=== PATIENT | male | born 1945 | race Caucasian/White ===

== ENCOUNTER 2017-01-01 04:11 | Inpatient (IN) | payer MEDICARE, OTHER ==
[~2017-01-01] VITALS: Ht 160 cm; Wt 63.3 kg
[2017-01-01] MEDS ORDERED: INSU100V12 SQ (04:20)
[2017-01-01] MEDS ORDERED: AMLO-512 PO (04:20)
[2017-01-01] MEDS ORDERED: LOSA50TA37 PO (04:20)
[2017-01-01] MEDS ORDERED: LEVO50 PO (04:20)
[2017-01-01] MEDS ORDERED: CARV12 PO (04:20)
[2017-01-01] MEDS ORDERED: FUROSEMIDE 40 MG/4 ML VIAL IVP ONE (04:30)
[2017-01-01 04:38] LABS: GLUCOSE,POINT OF CARE 180 MG/DL (70-110)
[2017-01-01 05:06] LABS: BASOPHILS % (AUTO) 0.3 % (0.0-2.0); HEMATOCRIT 33.1 % (41-53); HEMOGLOBIN 11.2 g/dL (13.5-17.5); LYMPHOCYTES # (AUTO) 1.2 K/uL (1.0-4.8); LYMPHOCYTES % (AUTO) 15.5 % (22.0-44.0); MEAN CORPUSCULAR HEMOGLOBIN 28.5 pg (26.0-34.0); MEAN CORPUSCULAR HGB CONC 33.9 G/dL (31.0-37.0); MEAN CORPUSCULAR VOLUME 84 fL (80-100); MONOCYTES # (AUTO) 0.6 K/uL (0.1-1.0); MONOCYTES % (AUTO) 6.9 % (2.0-9.0); NEUTROPHILS % (AUTO) 74.3 % (40.0-70.0); PLATELET COUNT (AUTO) 225 K/uL (150-450); RED BLOOD CELL COUNT(AUTO) 3.93 MIL/uL (4.50-5.90)
[2017-01-01 05:21] LABS: BILIRUBIN,TOTAL 0.5 mg/dL (0.1-1.0); CALCIUM, TOTAL 8.6 mg/dL (8.8-10.5); CREATININE 9.92 mg/dL (0.60-1.30); TOTAL PROTEIN, SERUM 7.7 g/dL (6.4-8.2)
[2017-01-01 05:36] LABS: POTASSIUM 6.1 mmol/L (3.5-5.1)
[2017-01-01] MEDS ORDERED: ALBUTEROL SULFATE 2.5 MG/0.5 ML NEB SOLUTION NEB ONE (05:45)
[2017-01-01] MEDS ORDERED: SODIUM BICARBONATE [ADULT] 8.4% 50 MEQ/50 ML SYRINGE IVP ONE (05:45)
[2017-01-01] MEDS ORDERED: DEXTROSE 50%-WATER 25 GM/50 ML SYRINGE IVP ONE (05:45)
[2017-01-01] MEDS ORDERED: CALCIUM GLUCONATE 100 MG/ML 10 ML IVP ONE (05:45)
[2017-01-01] MEDS ORDERED: SODIUM POLYSTYRENE SULFONATE 15 GM/60 ML SUSPENSION BOTTLE PO ONE (05:45)
[2017-01-01] MEDS ORDERED: INSULIN REGULAR, HUMAN 100 UNITS/ML IVP ONE (05:45)
[2017-01-01 09:28] VITALS: BP 160/69
[2017-01-01] MEDS ORDERED: SODIUM CHLORIDE 0.9% 1,000 ML IV ONE (10:22)
[2017-01-01 11:10] VITALS: BP 157/77
[2017-01-01] MEDS: VITAMIN B COMP/VIT C/FOLIC ACID CAPSULE PO SCH (12:26)
[2017-01-01] MEDS ORDERED: INFLUENZA VIRUS VACCINE QVS 2017-18 (3YR+)/PF 60 MCG/0.5 ML SYRINGE IM ONE (13:15)
[2017-01-01 15:17] VITALS: BP 157/85
[2017-01-01 19:57] VITALS: BP 169/89
[2017-01-01 23:40] VITALS: BP 167/76
[2017-01-02 04:49] VITALS: BP 166/78
[2017-01-02 06:57] LABS: CALCIUM, TOTAL 8.3 mg/dL (8.8-10.5); CREATININE 7.35 mg/dL (0.60-1.30); MAGNESIUM 1.9 mg/dL (1.80-2.40); PHOSPHORUS 4.5 mg/dL (2.5-4.9); POTASSIUM 4.1 mmol/L (3.5-5.1)
[2017-01-02 07:45] VITALS: BP 159/72
[2017-01-02] MEDS: VITAMIN B COMP/VIT C/FOLIC ACID CAPSULE PO SCH (08:47)
[2017-01-02 11:20] VITALS: BP 121/80
[2017-01-02 15:01] VITALS: BP 176/92
[2017-01-02] MEDS ORDERED: BISACODYL 10 MG RECTAL RECTAL SUPPOSITORY PR PRN (16:45)
[2017-01-02] MEDS ORDERED: ZOLPIDEM TARTRATE 5 MG TABLET PO PRN (16:45)
[2017-01-02] MEDS ORDERED: MAGNESIUM HYDROXIDE SUSPENSION 30 ML UDCUP PO PRN (16:45)
[2017-01-02] MEDS ORDERED: MORPHINE SULFATE 2 MG/ML SYRINGE IVP PRN (16:45)
[2017-01-02] MEDS ORDERED: HYDROCODONE/ACETAMINOPHEN 5-325 MG TABLET PO PRN (16:45)
[2017-01-02] MEDS ORDERED: ALBUTEROL SULFATE 2.5 MG/0.5 ML NEB SOLUTION NEB PRN (16:45)
[2017-01-02] MEDS ORDERED: LOSARTAN POTASSIUM 50 MG TABLET PO SCH (16:45)
[2017-01-02] MEDS ORDERED: AmLODIPine BESYLATE 10 MG TABLET PO SCH (16:45)
[2017-01-02] MEDS ORDERED: IPRATROPIUM BROMIDE 0.5 MG/2.5 ML NEB SOLUTION NEB PRN (16:45)
[2017-01-02] MEDS ORDERED: ONDANSETRON HCL 4 MG/2 ML VIAL IVP PRN (16:45)
[2017-01-02] MEDS ORDERED: ACETAMINOPHEN 325 MG TABLET PO PRN (16:45)
[2017-01-02] MEDS ORDERED: ACETAMINOPHEN 325 MG TABLET PO ONE (18:09)
[2017-01-02] MEDS ORDERED: DOCUSATE SODIUM 100 MG CAPSULE PO SCH (21:00)
[2017-01-02] MEDS ORDERED: CARVEDILOL 12.5 MG TABLET PO SCH (21:00)
[2017-01-03] MEDS ORDERED: HEPARIN SODIUM,PORCINE 5,000 UNITS/ML VIAL SQ SCH
[2017-01-03] MEDS ORDERED: LEVOTHYROXINE SODIUM 50 MCG TABLET PO SCH (06:30)
[2017-01-03] MEDS ORDERED: PANTOPRAZOLE SODIUM 40 MG/VIAL IVP SCH (09:00)
[2017-01-03] MEDS ORDERED: INSULIN DETEMIR 100 UNITS/ML SQ SCH (09:00)
== END 2017-01-02 18:10 | disposition home or self-care (01) | DRG 640 ==
LOC: EMS 04:12 → 5N 07:08
PROVIDERS: ADMIT Hospitalist; ATTEND Hospitalist
PROC: 5A1D70Z Performance of Urinary Filtration, Intermittent, Less than 6 Hours Per Day (ICD-10-PCS; principal; 2017-01-01)
PROC: 5A1D70Z Performance of Urinary Filtration, Intermittent, Less than 6 Hours Per Day (ICD-10-PCS; 2017-01-02)
DX: E87.5 Hyperkalemia (principal); N18.6 End stage renal disease; I13.2 Hypertensive heart and chronic kidney disease with heart failure and with stage 5 chronic kidney disease, or end stage renal disease; E11.22 Type 2 diabetes mellitus with diabetic chronic kidney disease; E03.9 Hypothyroidism, unspecified; E78.5 Hyperlipidemia, unspecified; I50.9 Heart failure, unspecified; Z79.4 Long term (current) use of insulin; Z79.899 Other long term (current) drug therapy; Z99.2 Dependence on renal dialysis; Z91.15 Patient's noncompliance with renal dialysis
CPT/HCPCS: 82962; 83735; 84100; 84132; 87081; 87340; 90471; 90935; 93005; 94640; 96374; 96375; 99291; J0610; J1815; J1940; J3490; J7030

== ENCOUNTER 2017-03-03 10:24 | Emergency (ER) | payer MEDICARE, OTHER ==
[~2017-03-03] VITALS: Ht 157.5 cm; Wt 61.4 kg
[~2017-03-03 10:24] MED LIST: AMLO-512 PO; CARV12 PO; INSU100V12 SQ; LEVO50 PO; LOSA50TA37 PO
[2017-03-03 10:37] LABS: GLUCOSE,POINT OF CARE 197 MG/DL (70-110)
[2017-03-03 13:01] VITALS: BP 155/71
== END 2017-03-03 13:05 | disposition home or self-care (01) ==
LOC: EMS 10:26
DX: R42 Dizziness and giddiness (principal); R51 Headache; I12.0 Hypertensive chronic kidney disease with stage 5 chronic kidney disease or end stage renal disease; E11.22 Type 2 diabetes mellitus with diabetic chronic kidney disease; N18.6 End stage renal disease; E03.9 Hypothyroidism, unspecified; Z99.2 Dependence on renal dialysis; Z79.4 Long term (current) use of insulin
CPT/HCPCS: 82962; 93005; 96372; 99283

== ENCOUNTER 2017-07-13 08:21 | Emergency (ER) | payer MEDICARE, OTHER ==
[~2017-07-13] VITALS: Ht 160 cm; Wt 54.5 kg
[2017-07-13 08:33] LABS: GLUCOSE,POINT OF CARE 110 MG/DL (70-110)
[2017-07-13] MEDS ORDERED: AmLODIPine BESYLATE 5 MG TABLET PO ONE (09:00)
[2017-07-13] MEDS ORDERED: LEVOTHYROXINE SODIUM 50 MCG TABLET PO ONE (09:00)
[2017-07-13] MEDS ORDERED: LOSARTAN POTASSIUM 50 MG TABLET PO ONE (09:00)
[2017-07-13] MEDS ORDERED: CARVEDILOL 3.125 MG TABLET PO ONE (09:00)
[2017-07-13 09:23] LABS: BASOPHILS % (AUTO) 0.4 % (0.0-2.0); EOSINOPHILS % (AUTO) 7.1 % (1.0-6.0); HEMATOCRIT 33.9 % (41-53); HEMOGLOBIN 11.2 g/dL (13.5-17.5); LYMPHOCYTES # (AUTO) 1.3 K/uL (1.0-4.8); LYMPHOCYTES % (AUTO) 26.9 % (22.0-44.0); MEAN CORPUSCULAR HEMOGLOBIN 28.1 pg (26.0-34.0); MEAN CORPUSCULAR VOLUME 85 fL (80-100); MONOCYTES # (AUTO) 0.5 K/uL (0.1-1.0); MONOCYTES % (AUTO) 10.1 % (2.0-9.0); NEUTROPHILS # (AUTO) 2.7 K/uL (1.8-7.7); NEUTROPHILS % (AUTO) 55.5 % (40.0-70.0); PLATELET COUNT (AUTO) 211 K/uL (150-450); RED BLOOD CELL COUNT(AUTO) 3.99 MIL/uL (4.50-5.90); RED CELL DISTRIBUTION WIDTH 17.2 % (11.5-14.5)
[2017-07-13 09:31] LABS: CREATININE 5.81 mg/dL (0.60-1.30); POTASSIUM 5.2 mmol/L (3.5-5.1)
[2017-07-13 09:32] LABS: CALCIUM, TOTAL 8.6 mg/dL (8.8-10.5)
[2017-07-13 09:39] LABS: ALBUMIN 3.8 g/dL (3.4-5.0); BILIRUBIN,TOTAL 0.6 mg/dL (0.1-1.0); TOTAL PROTEIN, SERUM 7.4 g/dL (6.4-8.2)
[2017-07-13 09:52] LABS: APPEARANCE,URINE CLEAR (CLEAR); BILIRUBIN,URINE NEGATIVE (NEGATIVE); GLUCOSE, URINE (UA) 100 mg/dL (NEGATIVE); KETONES,URINE NEGATIVE (NEGATIVE); LEUKOCYTE ESTERASE ,URINE SMALL (NEGATIVE); NITRATE,URINE NEGATIVE (NEGATIVE); OCCULT BLOOD,URINE TRACE (NEGATIVE); PROTEIN,URINE SEE CONFIRM (NEGATIVE); UROBILINOGEN,URINE 0.2 mg/dL (<=1.0)
[2017-07-13 10:24] LABS: BACTERIA,URINE None Seen /HPF (None Seen); RBC,URINE 0-2 /HPF (0-2)
[2017-07-13 10:25] LABS: SULFOSALICYLIC ACID,URINE 3+ (Negative)
[2017-07-13] MEDS ORDERED: SODIUM POLYSTYRENE SULFONATE 15 GM/60 ML SUSPENSION BOTTLE PO ONE (11:00)
[2017-07-13] MEDS ORDERED: LOPERAMIDE HCL 2 MG CAPSULE PO ONE (12:15)
[2017-07-13 14:28] VITALS: BP 159/77
[2017-07-13 16:51] LABS: C.DIFF GDH ANTIGEN, Stool Negative (Negative); C.DIFF TOXINS A&B, Stool Negative (Negative)
== END 2017-07-13 14:07 | disposition home or self-care (01) ==
LOC: EMS 08:23
DX: R19.7 Diarrhea, unspecified (principal); E11.22 Type 2 diabetes mellitus with diabetic chronic kidney disease; I12.0 Hypertensive chronic kidney disease with stage 5 chronic kidney disease or end stage renal disease; N18.6 End stage renal disease; E03.9 Hypothyroidism, unspecified; Z99.2 Dependence on renal dialysis; Z79.4 Long term (current) use of insulin
CPT/HCPCS: 87045; 87324; 87449; 99284

== ENCOUNTER 2017-12-07 10:40 | Emergency (ER) | payer MEDICARE, OTHER ==
[~2017-12-07] VITALS: Ht 160 cm; Wt 59.5 kg
[~2017-12-07 10:40] MED LIST changes: +LOSA50TA25 PO; -LOSA50TA37 PO
[2017-12-07 10:54] LABS: GLUCOSE,POINT OF CARE 183 MG/DL (70-110)
[2017-12-07 11:38] LABS: BASOPHILS % (AUTO) 1.1 % (0.0-2.0); EOSINOPHILS % (AUTO) 7.5 % (1.0-6.0); HEMATOCRIT 33.2 % (41-53); HEMOGLOBIN 11.1 g/dL (13.5-17.5); LYMPHOCYTES # (AUTO) 1.2 K/uL (1.0-4.8); LYMPHOCYTES % (AUTO) 26.5 % (22.0-44.0); MEAN CORPUSCULAR HEMOGLOBIN 28.8 pg (26.0-34.0); MEAN CORPUSCULAR HGB CONC 33.5 G/dL (31.0-37.0); MEAN CORPUSCULAR VOLUME 86 fL (80-100); MONOCYTES # (AUTO) 0.4 K/uL (0.1-1.0); MONOCYTES % (AUTO) 9.1 % (2.0-9.0); NEUTROPHILS # (AUTO) 2.5 K/uL (1.8-7.7); NEUTROPHILS % (AUTO) 55.8 % (40.0-70.0); PLATELET COUNT (AUTO) 204 K/uL (150-450); RED BLOOD CELL COUNT(AUTO) 3.86 MIL/uL (4.50-5.90); RED CELL DISTRIBUTION WIDTH 16.7 % (11.5-14.5)
[2017-12-07] MEDS ORDERED: NIFE10 PO (11:40)
[2017-12-07 11:46] LABS: CALCIUM, TOTAL 8.5 mg/dL (8.8-10.5); CREATININE 5.81 mg/dL (0.60-1.30)
[2017-12-07 12:01] LABS: ALBUMIN 3.5 g/dL (3.4-5.0); BILIRUBIN,TOTAL 0.5 mg/dL (0.1-1.0); THYROID STIMULATING HORMONE 7.03 uIU/mL (0.36-3.74); TOTAL PROTEIN, SERUM 7.4 g/dL (6.4-8.2)
[2017-12-07] MEDS ORDERED: LEVOTHYROXINE SODIUM 75 MCG TABLET PO ONE (14:45)
[2017-12-07 14:49] LABS: APPEARANCE,URINE CLEAR (CLEAR); BILIRUBIN,URINE NEGATIVE (NEGATIVE); GLUCOSE, URINE (UA) 100 mg/dL (NEGATIVE); KETONES,URINE NEGATIVE (NEGATIVE); LEUKOCYTE ESTERASE ,URINE NEGATIVE (NEGATIVE); NITRATE,URINE NEGATIVE (NEGATIVE); OCCULT BLOOD,URINE TRACE (NEGATIVE); PROTEIN,URINE SEE CONFIRM (NEGATIVE); UROBILINOGEN,URINE 0.2 mg/dL (<=1.0)
[2017-12-07 15:04] LABS: SULFOSALICYLIC ACID,URINE 4+ (Negative)
[2017-12-07 15:13] LABS: BACTERIA,URINE None Seen /HPF (None Seen); RBC,URINE 0-2 /HPF (0-2); SQUAMOUS EPITHELIAL CELL,UR Rare /LPF (None Seen); WBC,URINE 0-2 /HPF (0-5)
[2017-12-07] MEDS ORDERED: CloNIDine HCL 0.1 MG TABLET PO ONE (15:30)
[2017-12-07] MEDS ORDERED: SODIUM CHLORIDE 0.9% 250 ML IV ONE (15:45)
[2017-12-07 18:08] VITALS: BP 154/89
== END 2017-12-07 18:09 | disposition home or self-care (01) ==
LOC: EMS 10:41
DX: I10 Essential (primary) hypertension (principal); E07.9 Disorder of thyroid, unspecified; T46.1X5A Adverse effect of calcium-channel blockers, initial encounter; I12.0 Hypertensive chronic kidney disease with stage 5 chronic kidney disease or end stage renal disease; E11.22 Type 2 diabetes mellitus with diabetic chronic kidney disease; N18.6 End stage renal disease; Z99.2 Dependence on renal dialysis; Z79.4 Long term (current) use of insulin; Y92.89 Other specified places as the place of occurrence of the external cause
CPT/HCPCS: 36415; 70450; 80053; 81001; 82962; 84443; 84484; 85025; 93005; 96360; 99285; J7050

== ENCOUNTER 2018-03-27 11:59 | Inpatient (IN) | payer MEDICARE, OTHER ==
[~2018-03-27] VITALS: Ht 160 cm; Wt 59.7 kg
[~2018-03-27 11:59] MED LIST changes: -AMLO-512 PO; -CARV12 PO; -LOSA50TA25 PO; +LOSA50TA64 PO; +NIFE10 PO
[2018-03-27] MEDS ORDERED: ISOS5TAB5 PO (12:31)
[2018-03-27] MEDS ORDERED: OMEP20CA10 PO (12:31)
[2018-03-27] MEDS ORDERED: CARV12.530 PO (12:31)
[2018-03-27] MEDS ORDERED: SPIR25TA6 PO (12:31)
[2018-03-27 12:43] LABS: GLUCOSE,POINT OF CARE 199 MG/DL (70-110)
[2018-03-27 13:16] LABS: BASOPHILS % (AUTO) 0.5 % (0.0-2.0); EOSINOPHILS % (AUTO) 6.2 % (1.0-6.0); HEMATOCRIT 33.9 % (41-53); HEMOGLOBIN 11.2 g/dL (13.5-17.5); LYMPHOCYTES % (AUTO) 21.3 % (22.0-44.0); MEAN CORPUSCULAR HEMOGLOBIN 28.7 pg (26.0-34.0); MEAN CORPUSCULAR VOLUME 87 fL (80-100); MONOCYTES # (AUTO) 0.4 K/uL (0.1-1.0); MONOCYTES % (AUTO) 7.6 % (2.0-9.0); NEUTROPHILS # (AUTO) 3.2 K/uL (1.8-7.7); NEUTROPHILS % (AUTO) 64.4 % (40.0-70.0); PLATELET COUNT (AUTO) 222 K/uL (150-450); RED CELL DISTRIBUTION WIDTH 16.1 % (11.5-14.5)
[2018-03-27 13:24] LABS: CALCIUM, TOTAL 8.9 mg/dL (8.8-10.5); CREATININE 5.7 mg/dL (0.60-1.30)
[2018-03-27 13:26] LABS: INR 1.1 (0.9-1.1); PROTHROMBIN TIME 11.2 SEC (9.4-11.6)
[2018-03-27 13:30] LABS: ALBUMIN 3.4 g/dL (3.4-5.0); BILIRUBIN,TOTAL 0.5 mg/dL (0.1-1.0); TOTAL PROTEIN, SERUM 7.1 g/dL (6.4-8.2)
[2018-03-27] MEDS ORDERED: ASPIRIN 81 MG CHEWABLE TABLET PO ONE (15:30)
[2018-03-27 15:41] LABS: APPEARANCE,URINE CLEAR (CLEAR); BILIRUBIN,URINE NEGATIVE (NEGATIVE); GLUCOSE, URINE (UA) 250 mg/dL (NEGATIVE); KETONES,URINE NEGATIVE (NEGATIVE); LEUKOCYTE ESTERASE ,URINE TRACE (NEGATIVE); NITRATE,URINE NEGATIVE (NEGATIVE); OCCULT BLOOD,URINE SMALL (NEGATIVE); PROTEIN,URINE SEE CONFIRM (NEGATIVE); UROBILINOGEN,URINE 0.2 mg/dL (<=1.0)
[2018-03-27 15:48] LABS: SULFOSALICYLIC ACID,URINE 4+ (Negative)
[2018-03-27 15:49] LABS: BACTERIA,URINE Rare /HPF (None Seen); RBC,URINE 0-2 /HPF (0-2); SQUAMOUS EPITHELIAL CELL,UR Few /LPF (None Seen)
[2018-03-27] MEDS ORDERED: 0.9% SODIUM CHLORIDE 10 ML SYRINGE IVP PRN (17:30)
[2018-03-27] MEDS ORDERED: INSULIN LISPRO 100 UNITS/ML SQ PRN (17:30)
[2018-03-27] MEDS ORDERED: ACETAMINOPHEN 325 MG TABLET PO PRN (17:30)
[2018-03-27] MEDS ORDERED: DEXTROSE 50%-WATER 25 GM/50 ML SYRINGE IVP PRN ×2 (17:30→20:15)
[2018-03-27] MEDS ORDERED: ONDANSETRON HCL 4 MG/2 ML VIAL IVP PRN (17:30)
[2018-03-27 18:21] VITALS: BP 117/80
[2018-03-27 19:34] VITALS: BP 188/89
[2018-03-27] MEDS ORDERED: ALBUTEROL SULFATE 2.5 MG/0.5 ML NEB SOLUTION NEB PRN ×2 (20:15→23:45)
[2018-03-27] MEDS ORDERED: BISACODYL 10 MG RECTAL RECTAL SUPPOSITORY PR PRN (20:15)
[2018-03-27] MEDS: DOCUSATE SODIUM 100 MG CAPSULE PO SCH (21:06)
[2018-03-27] MEDS: LOSARTAN POTASSIUM 25 MG TABLET PO SCH (21:06)
[2018-03-27] MEDS: AmLODIPine BESYLATE 10 MG TABLET PO SCH (21:06)
[2018-03-27] MEDS: HEPARIN SODIUM,PORCINE 5,000 UNITS/ML VIAL SQ SCH (21:06)
[2018-03-27 22:29] LABS: GLUCOMETER DEV NAME(LOC) 5S.2; GLUCOSE,POINT OF CARE 216 MG/DL (70-110)
[2018-03-27 23:10] VITALS: BP 202/81
[2018-03-27] MEDS: CloNIDine HCL 0.1 MG TABLET PO PRN (23:11)
[2018-03-27] MEDS: CARVEDILOL 12.5 MG TABLET PO SCH (23:30)
[2018-03-27] MEDS ORDERED: DOXERCALCIFEROL 4 MCG/2 ML VIAL IVP SCH (23:45)
[2018-03-27] MEDS ORDERED: HydrALAZINE HCL 20 MG/ML VIAL IVP PRN (23:45)
[2018-03-28] VITALS (9 sets, daily range): BP systolic 133–237; BP diastolic 60–117
[2018-03-28] MEDS: ACETAMINOPHEN 325 MG TABLET PO PRN (02:38)
[2018-03-28] MEDS: OxyCODONE HCL/ACETAMINOPHEN 5-325 MG TABLET PO PRN ×4 (05:47→23:44)
[2018-03-28] MEDS: HydrALAZINE HCL 20 MG/ML VIAL IVP PRN ×3 (06:08→23:44)
[2018-03-28] MEDS: CloNIDine HCL 0.1 MG TABLET PO PRN ×2 (06:46→15:48)
[2018-03-28 07:55] LABS: ALBUMIN 3.1 g/dL (3.4-5.0); BILIRUBIN,TOTAL 0.6 mg/dL (0.1-1.0); CALCIUM, TOTAL 8.6 mg/dL (8.8-10.5); CREATININE 4.94 mg/dL (0.60-1.30); POTASSIUM 4.1 mmol/L (3.5-5.1); THYROID STIMULATING HORMONE 11.44 uIU/mL (0.36-3.74); TOTAL PROTEIN, SERUM 6.5 g/dL (6.4-8.2)
[2018-03-28 08:08] LABS: BASOPHILS % (AUTO) 0.4 % (0.0-2.0); EOSINOPHILS % (AUTO) 4.5 % (1.0-6.0); HEMATOCRIT 31.7 % (41-53); HEMOGLOBIN 10.6 g/dL (13.5-17.5); LYMPHOCYTES # (AUTO) 0.9 K/uL (1.0-4.8); LYMPHOCYTES % (AUTO) 15.1 % (22.0-44.0); MEAN CORPUSCULAR HEMOGLOBIN 28.8 pg (26.0-34.0); MEAN CORPUSCULAR HGB CONC 33.4 G/dL (31.0-37.0); MEAN CORPUSCULAR VOLUME 86 fL (80-100); MONOCYTES # (AUTO) 0.3 K/uL (0.1-1.0); MONOCYTES % (AUTO) 4.9 % (2.0-9.0); NEUTROPHILS # (AUTO) 4.3 K/uL (1.8-7.7); NEUTROPHILS % (AUTO) 75.1 % (40.0-70.0); PLATELET COUNT (AUTO) 216 K/uL (150-450); RED BLOOD CELL COUNT(AUTO) 3.67 MIL/uL (4.50-5.90); RED CELL DISTRIBUTION WIDTH 16.2 % (11.5-14.5)
[2018-03-28] MEDS: HEPARIN SODIUM,PORCINE 5,000 UNITS/ML VIAL SQ SCH ×2 (09:48→20:57)
[2018-03-28] MEDS: VITAMIN B COMP/VIT C/FOLIC ACID CAPSULE PO SCH (09:49)
[2018-03-28] MEDS: FAMOTIDINE 20 MG TABLET PO SCH (09:49)
[2018-03-28] MEDS: DOCUSATE SODIUM 100 MG CAPSULE PO SCH ×2 (09:49→20:57)
[2018-03-28] MEDS: ATORVASTATIN CALCIUM 20 MG TABLET PO SCH (09:49)
[2018-03-28] MEDS: ASPIRIN 81 MG CHEWABLE TABLET PO SCH (09:50)
[2018-03-28 10:59] LABS: GLUCOMETER DEV NAME(LOC) 5S.1; GLUCOSE,POINT OF CARE 110 MG/DL (70-110)
[2018-03-28] MEDS: LOSARTAN POTASSIUM 25 MG TABLET PO SCH ×2 (11:19→20:57)
[2018-03-28] MEDS: CARVEDILOL 12.5 MG TABLET PO SCH ×2 (11:19→20:56)
[2018-03-28] MEDS: INSULIN LISPRO 100 UNITS/ML SQ PRN ×3 (11:21→20:58)
[2018-03-28 13:14] LABS: GLUCOMETER DEV NAME(LOC) 5S.1; GLUCOSE,POINT OF CARE 185 MG/DL (70-110)
[2018-03-28] MEDS: AmLODIPine BESYLATE 10 MG TABLET PO SCH (20:57)
[2018-03-29] VITALS (9 sets, daily range): BP systolic 12–182; BP diastolic 54–82
[2018-03-29] MEDS: INSULIN LISPRO 100 UNITS/ML SQ PRN ×4 (06:03→21:18)
[2018-03-29] MEDS: HEPARIN SODIUM,PORCINE 5,000 UNITS/ML VIAL SQ SCH ×2 (08:10→21:16)
[2018-03-29] MEDS: FAMOTIDINE 20 MG TABLET PO SCH (08:10)
[2018-03-29] MEDS: ONDANSETRON HCL 4 MG/2 ML VIAL IVP PRN ×2 (08:10→14:04)
[2018-03-29] MEDS: CARVEDILOL 12.5 MG TABLET PO SCH (08:11)
[2018-03-29] MEDS: DOCUSATE SODIUM 100 MG CAPSULE PO SCH ×2 (08:11→21:17)
[2018-03-29] MEDS: ATORVASTATIN CALCIUM 20 MG TABLET PO SCH (08:11)
[2018-03-29] MEDS: LOSARTAN POTASSIUM 25 MG TABLET PO SCH (08:11)
[2018-03-29] MEDS: VITAMIN B COMP/VIT C/FOLIC ACID CAPSULE PO SCH (08:11)
[2018-03-29] MEDS: ASPIRIN 81 MG CHEWABLE TABLET PO SCH (08:11)
[2018-03-29] MEDS: CloNIDine HCL 0.1 MG TABLET PO PRN (08:12)
[2018-03-29] MEDS ORDERED: MECLIZINE HCL 25 MG TABLET PO PRN (10:00)
[2018-03-29] MEDS: HydrALAZINE HCL 25 MG TABLET PO SCH ×2 (10:48→21:00)
[2018-03-29 11:19] LABS: GLUCOMETER DEV NAME(LOC) 5S.1; GLUCOSE,POINT OF CARE 180 MG/DL (70-110)
[2018-03-29 11:19] LABS: GLUCOMETER DEV NAME(LOC) 5S.1; GLUCOSE,POINT OF CARE 234 MG/DL (70-110)
[2018-03-29 11:29] LABS: GLUCOMETER DEV NAME(LOC) 5S.2; GLUCOSE,POINT OF CARE 163 MG/DL (70-110)
[2018-03-29 11:29] LABS: GLUCOMETER DEV NAME(LOC) 5S.2; GLUCOSE,POINT OF CARE 133 MG/DL (70-110)
[2018-03-29] MEDS ORDERED: LIDOCAINE/PF 1% 2 ML VIAL IV ONE (11:48)
[2018-03-29 18:59] LABS: GLUCOMETER DEV NAME(LOC) 5S.1; GLUCOSE,POINT OF CARE 191 MG/DL (70-110)
[2018-03-29 18:59] LABS: GLUCOMETER DEV NAME(LOC) 5S.1; GLUCOSE,POINT OF CARE 158 MG/DL (70-110)
[2018-03-29] MEDS: CARVEDILOL 6.25 MG TABLET PO SCH (21:00)
[2018-03-29] MEDS: LOSARTAN POTASSIUM 50 MG TABLET PO SCH (21:16)
[2018-03-29] MEDS: AmLODIPine BESYLATE 10 MG TABLET PO SCH (21:16)
[2018-03-30 00:21] VITALS: BP 152/60
[2018-03-30] MEDS: ACETAMINOPHEN 325 MG TABLET PO PRN (05:16)
[2018-03-30 05:30] VITALS: BP 152/80
[2018-03-30] MEDS: INSULIN LISPRO 100 UNITS/ML SQ PRN ×4 (06:29→21:11)
[2018-03-30 07:51] LABS: BASOPHILS % (AUTO) 0.2 % (0.0-2.0); EOSINOPHILS % (AUTO) 4.2 % (1.0-6.0); HEMATOCRIT 30.4 % (41-53); HEMOGLOBIN 10.1 g/dL (13.5-17.5); LYMPHOCYTES # (AUTO) 0.8 K/uL (1.0-4.8); LYMPHOCYTES % (AUTO) 12.1 % (22.0-44.0); MEAN CORPUSCULAR HEMOGLOBIN 28.9 pg (26.0-34.0); MEAN CORPUSCULAR HGB CONC 33.2 G/dL (31.0-37.0); MEAN CORPUSCULAR VOLUME 87 fL (80-100); MONOCYTES # (AUTO) 0.5 K/uL (0.1-1.0); MONOCYTES % (AUTO) 7.7 % (2.0-9.0); NEUTROPHILS # (AUTO) 5.2 K/uL (1.8-7.7); NEUTROPHILS % (AUTO) 75.8 % (40.0-70.0); PLATELET COUNT (AUTO) 188 K/uL (150-450); RED BLOOD CELL COUNT(AUTO) 3.48 MIL/uL (4.50-5.90); RED CELL DISTRIBUTION WIDTH 16.7 % (11.5-14.5)
[2018-03-30 07:54] LABS: CALCIUM, TOTAL 8.4 mg/dL (8.8-10.5); CREATININE 7.4 mg/dL (0.60-1.30); POTASSIUM 4.2 mmol/L (3.5-5.1)
[2018-03-30 07:55] VITALS: BP 126/50
[2018-03-30 08:04] LABS: GLUCOMETER DEV NAME(LOC) 5S.2; GLUCOSE,POINT OF CARE 158 MG/DL (70-110)
[2018-03-30 08:04] LABS: GLUCOMETER DEV NAME(LOC) 5S.2; GLUCOSE,POINT OF CARE 208 MG/DL (70-110)
[2018-03-30] MEDS: HydrALAZINE HCL 25 MG TABLET PO SCH ×2 (08:54→21:00)
[2018-03-30] MEDS: HEPARIN SODIUM,PORCINE 5,000 UNITS/ML VIAL SQ SCH ×2 (08:54→21:12)
[2018-03-30] MEDS: DOCUSATE SODIUM 100 MG CAPSULE PO SCH ×2 (08:55→21:12)
[2018-03-30] MEDS: VITAMIN B COMP/VIT C/FOLIC ACID CAPSULE PO SCH (08:55)
[2018-03-30] MEDS: FAMOTIDINE 20 MG TABLET PO SCH (08:55)
[2018-03-30] MEDS: CARVEDILOL 6.25 MG TABLET PO SCH ×2 (08:55→21:00)
[2018-03-30] MEDS: LOSARTAN POTASSIUM 50 MG TABLET PO SCH ×2 (08:55→21:12)
[2018-03-30] MEDS: ASPIRIN 81 MG CHEWABLE TABLET PO SCH (08:56)
[2018-03-30] MEDS: ATORVASTATIN CALCIUM 20 MG TABLET PO SCH (09:01)
[2018-03-30 11:37] VITALS: BP 152/69
[2018-03-30 15:22] VITALS: BP 146/54
[2018-03-30 19:39] VITALS: BP 145/63
[2018-03-30] MEDS: AmLODIPine BESYLATE 10 MG TABLET PO SCH (21:12)
[2018-03-30 22:09] LABS: GLUCOMETER DEV NAME(LOC) 5S.2; GLUCOSE,POINT OF CARE 224 MG/DL (70-110)
[2018-03-30 22:09] LABS: GLUCOMETER DEV NAME(LOC) 5S.2; GLUCOSE,POINT OF CARE 202 MG/DL (70-110)
[2018-03-30 22:09] LABS: GLUCOMETER DEV NAME(LOC) 5S.2; GLUCOSE,POINT OF CARE 163 MG/DL (70-110)
[2018-03-31 00:05] VITALS: BP_SYST 167; BP_SYST 178; BP_DIAS 73; BP_DIAS 77
[2018-03-31] MEDS: HydrALAZINE HCL 20 MG/ML VIAL IVP PRN (01:05)
[2018-03-31 04:35] VITALS: BP 152/61
[2018-03-31] MEDS: INSULIN LISPRO 100 UNITS/ML SQ PRN ×2 (06:04→12:10)
[2018-03-31 06:06] LABS: BASOPHILS % (AUTO) 0.3 % (0.0-2.0); EOSINOPHILS % (AUTO) 3.9 % (1.0-6.0); HEMATOCRIT 31.1 % (41-53); HEMOGLOBIN 10.8 g/dL (13.5-17.5); LYMPHOCYTES # (AUTO) 1.1 K/uL (1.0-4.8); LYMPHOCYTES % (AUTO) 14.6 % (22.0-44.0); MEAN CORPUSCULAR HEMOGLOBIN 30.3 pg (26.0-34.0); MEAN CORPUSCULAR HGB CONC 34.8 G/dL (31.0-37.0); MEAN CORPUSCULAR VOLUME 87 fL (80-100); MONOCYTES # (AUTO) 0.6 K/uL (0.1-1.0); MONOCYTES % (AUTO) 8.3 % (2.0-9.0); NEUTROPHILS # (AUTO) 5.3 K/uL (1.8-7.7); NEUTROPHILS % (AUTO) 72.9 % (40.0-70.0); PLATELET COUNT (AUTO) 183 K/uL (150-450); RED BLOOD CELL COUNT(AUTO) 3.58 MIL/uL (4.50-5.90); RED CELL DISTRIBUTION WIDTH 16.7 % (11.5-14.5)
[2018-03-31 06:41] LABS: CALCIUM, TOTAL 8.7 mg/dL (8.8-10.5); CREATININE 9.17 mg/dL (0.60-1.30); POTASSIUM 5.1 mmol/L (3.5-5.1)
[2018-03-31 07:51] VITALS: BP 152/55
[2018-03-31] MEDS: CARVEDILOL 6.25 MG TABLET PO SCH (08:55)
[2018-03-31] MEDS: LOSARTAN POTASSIUM 50 MG TABLET PO SCH (08:55)
[2018-03-31] MEDS: HEPARIN SODIUM,PORCINE 5,000 UNITS/ML VIAL SQ SCH (08:55)
[2018-03-31] MEDS: VITAMIN B COMP/VIT C/FOLIC ACID CAPSULE PO SCH (08:55)
[2018-03-31] MEDS: ATORVASTATIN CALCIUM 20 MG TABLET PO SCH (08:55)
[2018-03-31] MEDS: HydrALAZINE HCL 25 MG TABLET PO SCH (08:55)
[2018-03-31] MEDS: DOCUSATE SODIUM 100 MG CAPSULE PO SCH (08:55)
[2018-03-31] MEDS: FAMOTIDINE 20 MG TABLET PO SCH (08:55)
[2018-03-31] MEDS: ASPIRIN 81 MG CHEWABLE TABLET PO SCH (08:55)
[2018-03-31] MEDS ORDERED: SODIUM CHLORIDE 0.9% 2,000 ML IV ONE (10:00)
[2018-03-31 10:39] LABS: GLUCOMETER DEV NAME(LOC) 5S.1; GLUCOSE,POINT OF CARE 239 MG/DL (70-110)
[2018-03-31 11:33] VITALS: BP 144/102
[2018-03-31 12:00] LABS: GLUCOMETER DEV NAME(LOC) 5S.1; GLUCOSE,POINT OF CARE 170 MG/DL (70-110)
[2018-03-31] MEDS ORDERED: LOSA25TA2 PO (14:19)
[2018-03-31] MEDS ORDERED: CARV6.2579 PO (14:19)
[2018-03-31] MEDS ORDERED: ASPI81TA39 PO (14:20)
[2018-03-31] MEDS ORDERED: ATOR20TA86 PO (14:20)
[2018-03-31] MEDS ORDERED: HYDR-4173 PO (14:21)
[2018-03-31 15:32] VITALS: BP 180/82
[2018-03-31] MEDS ORDERED: AMLO10TA4 PO (16:02)
== END 2018-03-31 16:25 | disposition home or self-care (01) | DRG 304 ==
LOC: EMS 11:59 → 5S 17:11
PROVIDERS: ADMIT Internal Medicine; ATTEND Internal Medicine
PROC: 5A1D70Z Performance of Urinary Filtration, Intermittent, Less than 6 Hours Per Day (ICD-10-PCS; principal; 2018-03-28)
PROC: 5A1D70Z Performance of Urinary Filtration, Intermittent, Less than 6 Hours Per Day (ICD-10-PCS; 2018-03-31)
DX: I16.0 Hypertensive urgency (principal); N18.6 End stage renal disease; N25.81 Secondary hyperparathyroidism of renal origin; I13.2 Hypertensive heart and chronic kidney disease with heart failure and with stage 5 chronic kidney disease, or end stage renal disease; E11.22 Type 2 diabetes mellitus with diabetic chronic kidney disease; E11.319 Type 2 diabetes mellitus with unspecified diabetic retinopathy without macular edema; E03.9 Hypothyroidism, unspecified; E11.40 Type 2 diabetes mellitus with diabetic neuropathy, unspecified; E78.5 Hyperlipidemia, unspecified; H54.61 Unqualified visual loss, right eye, normal vision left eye; I50.9 Heart failure, unspecified; Z79.899 Other long term (current) drug therapy; Z82.49 Family history of ischemic heart disease and other diseases of the circulatory system; Z83.3 Family history of diabetes mellitus; Z99.2 Dependence on renal dialysis; Z87.01 Personal history of pneumonia (recurrent)
CPT/HCPCS: 70450; 84443; 87081; 87086; 87340; 93005; 93306; G0378; J0360; J1644; J2405; J3490; J7030

== ENCOUNTER 2018-06-08 07:27 | Emergency (ER) | payer MEDICARE, OTHER ==
[~2018-06-08] VITALS: Ht 160 cm; Wt 62.5 kg
[~2018-06-08 07:27] MED LIST changes: +AMLO10TA4 PO; +ASPI81TA39 PO; +ATOR20TA86 PO; +CARV6.2579 PO; +HYDR-4173 PO; +ISOS5TAB5 PO; +LOSA25TA2 PO; -LOSA50TA64 PO; -NIFE10 PO
[2018-06-08] MEDS ORDERED: CARV6 PO (07:49)
[2018-06-08] MEDS ORDERED: VIT D3 PO (07:49)
[2018-06-08 08:34] LABS: BASOPHILS % (AUTO) 0.6 % (0.0-2.0); EOSINOPHILS % (AUTO) 4.9 % (1.0-6.0); HEMATOCRIT 35.8 % (41-53); HEMOGLOBIN 11.6 g/dL (13.5-17.5); LYMPHOCYTES # (AUTO) 1.2 K/uL (1.0-4.8); LYMPHOCYTES % (AUTO) 23.6 % (22.0-44.0); MEAN CORPUSCULAR HGB CONC 32.5 G/dL (31.0-37.0); MEAN CORPUSCULAR VOLUME 89 fL (80-100); MONOCYTES # (AUTO) 0.4 K/uL (0.1-1.0); MONOCYTES % (AUTO) 9.2 % (2.0-9.0); NEUTROPHILS % (AUTO) 61.7 % (40.0-70.0); PLATELET COUNT (AUTO) 180 K/uL (150-450); RED BLOOD CELL COUNT(AUTO) 4.02 MIL/uL (4.50-5.90)
[2018-06-08] MEDS: HydrALAZINE HCL 25 MG TABLET PO ONE ×2 (08:37→08:42)
[2018-06-08] MEDS: CARVEDILOL 3.125 MG TABLET PO ONE ×2 (08:37→08:42)
[2018-06-08] MEDS: ISOSORBIDE DINITRATE 5 MG TABLET PO ONE ×2 (08:38→08:42)
[2018-06-08] MEDS: LOSARTAN POTASSIUM 25 MG TABLET PO ONE ×2 (08:38→08:42)
[2018-06-08 08:44] LABS: CALCIUM, TOTAL 9.8 mg/dL (8.8-10.5); CREATININE 7.87 mg/dL (0.60-1.30); POTASSIUM 5.4 mmol/L (3.5-5.1)
[2018-06-08 08:50] LABS: ALBUMIN 3.6 g/dL (3.4-5.0); BILIRUBIN,TOTAL 0.4 mg/dL (0.1-1.0); TOTAL PROTEIN, SERUM 7.4 g/dL (6.4-8.2)
[2018-06-08] MEDS ORDERED: CloNIDine HCL 0.1 MG TABLET PO ONE (10:15)
[2018-06-08 10:55] VITALS: BP 190/73
== END 2018-06-08 11:47 | disposition home or self-care (01) ==
LOC: EMS 07:28
DX: R07.9 Chest pain, unspecified (principal); E11.9 Type 2 diabetes mellitus without complications; I10 Essential (primary) hypertension; E03.9 Hypothyroidism, unspecified; Z79.4 Long term (current) use of insulin
CPT/HCPCS: 93005; 93041

== ENCOUNTER 2018-07-13 23:05 | Inpatient (IN) | payer MEDICARE, OTHER ==
[~2018-07-13] VITALS: Ht 160 cm; Wt 58.5 kg
[~2018-07-13 23:05] MED LIST changes: -AMLO10TA4 PO; -ASPI81TA39 PO; -ATOR20TA86 PO; +CARV6 PO; -CARV6.2579 PO; -LEVO50 PO; +VIT D3 PO
[2018-07-13 23:24] LABS: GLUCOSE,POINT OF CARE 157 MG/DL (70-110)
[2018-07-13] MEDS ORDERED: B CO1CAP6 PO (23:27)
[2018-07-14 00:47] LABS: ALBUMIN 3.8 g/dL (3.4-5.0); BILIRUBIN,TOTAL 0.4 mg/dL (0.1-1.0); CREATININE 9.66 mg/dL (0.60-1.30); TOTAL PROTEIN, SERUM 7.2 g/dL (6.4-8.2)
[2018-07-14 00:48] LABS: BASOPHILS % (AUTO) 0.4 % (0.0-2.0); EOSINOPHILS % (AUTO) 4.4 % (1.0-6.0); HEMATOCRIT 40.9 % (41-53); HEMOGLOBIN 13.3 g/dL (13.5-17.5); LYMPHOCYTES # (AUTO) 1.1 K/uL (1.0-4.8); LYMPHOCYTES % (AUTO) 22.8 % (22.0-44.0); MEAN CORPUSCULAR HEMOGLOBIN 29.6 pg (26.0-34.0); MEAN CORPUSCULAR HGB CONC 32.6 G/dL (31.0-37.0); MEAN CORPUSCULAR VOLUME 91 fL (80-100); MONOCYTES # (AUTO) 0.5 K/uL (0.1-1.0); MONOCYTES % (AUTO) 9.5 % (2.0-9.0); NEUTROPHILS % (AUTO) 62.9 % (40.0-70.0); PLATELET COUNT (AUTO) 177 K/uL (150-450); RED BLOOD CELL COUNT(AUTO) 4.51 MIL/uL (4.50-5.90); RED CELL DISTRIBUTION WIDTH 16.6 % (11.5-14.5)
[2018-07-14 00:49] LABS: POTASSIUM 7.3 mmol/L (3.5-5.1)
[2018-07-14] MEDS ORDERED: INSULIN REGULAR, HUMAN 100 UNITS/ML IVP ONE (01:00)
[2018-07-14] MEDS ORDERED: SODIUM BICARBONATE [ADULT] 8.4% 50 MEQ/50 ML SYRINGE IVP ONE (01:00)
[2018-07-14] MEDS ORDERED: CALCIUM GLUCONATE 100 MG/ML 10 ML IVP ONE (01:00)
[2018-07-14] MEDS ORDERED: ONDANSETRON HCL 4 MG/2 ML VIAL IVP ONE (01:00)
[2018-07-14] MEDS ORDERED: DEXTROSE 50%-WATER 25 GM/50 ML SYRINGE IVP ONE (01:00)
[2018-07-14] MEDS ORDERED: ALBUTEROL SULFATE 2.5 MG/0.5 ML NEB SOLUTION NEB ONE (01:00)
[2018-07-14] MEDS ORDERED: 0.9% SODIUM CHLORIDE 10 ML SYRINGE IVP PRN (01:15)
[2018-07-14] MEDS ORDERED: ONDANSETRON HCL 4 MG/2 ML VIAL IVP PRN (01:15)
[2018-07-14] MEDS ORDERED: SODIUM POLYSTYRENE SULFONATE 15 GM/60 ML SUSPENSION BOTTLE PO ONE (01:15)
[2018-07-14] MEDS ORDERED: ACETAMINOPHEN 325 MG TABLET PO PRN ×2 (01:15→05:45)
[2018-07-14] MEDS ORDERED: 0.9% SODIUM CHLORIDE 5 ML NEB SOLUTION NEB ONE (01:25)
[2018-07-14 06:35] LABS: CALCIUM, TOTAL 9.4 mg/dL (8.8-10.5); CREATININE 4.47 mg/dL (0.60-1.30)
[2018-07-14 07:22] LABS: POTASSIUM 2.8 mmol/L (3.5-5.1)
[2018-07-14] MEDS ORDERED: DEXTROSE 50%-WATER 25 GM/50 ML SYRINGE IVP PRN (07:45)
[2018-07-14 08:24] LABS: GLUCOSE,POINT OF CARE 134 MG/DL (70-110)
[2018-07-14] MEDS: DOCUSATE SODIUM 100 MG CAPSULE PO SCH ×2 (09:00→19:44)
[2018-07-14] MEDS: HEPARIN SODIUM,PORCINE 5,000 UNITS/ML VIAL SQ SCH ×2 (09:59→19:36)
[2018-07-14] MEDS: AmLODIPine BESYLATE 5 MG TABLET PO SCH (09:59)
[2018-07-14] MEDS: FAMOTIDINE 20 MG TABLET PO SCH (09:59)
[2018-07-14] MEDS: ASPIRIN 81 MG CHEWABLE TABLET PO SCH (09:59)
[2018-07-14] MEDS ORDERED: DOXERCALCIFEROL 4 MCG/2 ML VIAL IVP PRN (13:15)
[2018-07-14 13:39] LABS: GLUCOSE,POINT OF CARE 153 MG/DL (70-110)
[2018-07-14] MEDS: CARVEDILOL 3.125 MG TABLET PO SCH ×2 (13:53→19:36)
[2018-07-14] MEDS: INSULIN LISPRO 100 UNITS/ML SQ PRN ×2 (13:53→18:03)
[2018-07-14] MEDS: SEVELAMER CARBONATE 800 MG TABLET PO SCH (19:36)
[2018-07-14] MEDS ORDERED: ATORVASTATIN CALCIUM 20 MG TABLET PO SCH ×2 (20:00→21:00)
[2018-07-14 20:10] LABS: GLUCOMETER DEV NAME(LOC) 5S.1; GLUCOSE,POINT OF CARE 239 MG/DL (70-110)
[2018-07-14 20:45] VITALS: BP 149/71
[2018-07-15 00:15] LABS: GLUCOMETER DEV NAME(LOC) 5S.1; GLUCOSE,POINT OF CARE 93 MG/DL (70-110)
[2018-07-15 00:30] VITALS: BP 145/65
[2018-07-15 04:10] VITALS: BP 181/68
[2018-07-15 05:20] LABS: GLUCOMETER DEV NAME(LOC) 5S.2; GLUCOSE,POINT OF CARE 172 MG/DL (70-110)
[2018-07-15] MEDS: INSULIN LISPRO 100 UNITS/ML SQ PRN ×2 (06:17→12:11)
[2018-07-15] MEDS ORDERED: LEVOTHYROXINE SODIUM 50 MCG TABLET PO SCH (06:30)
[2018-07-15 06:54] VITALS: BP 149/59
[2018-07-15] MEDS: SEVELAMER CARBONATE 800 MG TABLET PO SCH ×2 (07:59→12:12)
[2018-07-15] MEDS: DOCUSATE SODIUM 100 MG CAPSULE PO SCH (07:59)
[2018-07-15] MEDS: CARVEDILOL 3.125 MG TABLET PO SCH (07:59)
[2018-07-15] MEDS: AmLODIPine BESYLATE 5 MG TABLET PO SCH (07:59)
[2018-07-15] MEDS: FAMOTIDINE 20 MG TABLET PO SCH (08:00)
[2018-07-15] MEDS: ASPIRIN 81 MG CHEWABLE TABLET PO SCH (08:00)
[2018-07-15 08:01] VITALS: BP 184/68
[2018-07-15] MEDS: HEPARIN SODIUM,PORCINE 5,000 UNITS/ML VIAL SQ SCH (08:01)
[2018-07-15] MEDS ORDERED: -POST HEMODIALYSIS NOTE- MISC SCH (09:00)
[2018-07-15] MEDS ORDERED: LOSARTAN POTASSIUM 50 MG TABLET PO SCH (10:15)
[2018-07-15 11:38] VITALS: BP 153/73
[2018-07-15 11:57] LABS: CALCIUM, TOTAL 8.9 mg/dL (8.8-10.5); CREATININE 8.04 mg/dL (0.60-1.30); POTASSIUM 5.2 mmol/L (3.5-5.1)
[2018-07-15] MEDS ORDERED: AMLO-512 PO (13:16)
[2018-07-15] MEDS ORDERED: HydrALAZINE HCL 25 MG TABLET PO SCH (16:00)
[2018-07-15 19:27] LABS: GLUCOMETER DEV NAME(LOC) 5S.2; GLUCOSE,POINT OF CARE 328 MG/DL (70-110)
== END 2018-07-15 14:40 | disposition home or self-care (01) | DRG 640 ==
LOC: EMS 23:05 → 5S 07-14 16:17
PROVIDERS: ADMIT Internal Medicine; ATTEND Internal Medicine
PROC: 5A1D70Z Performance of Urinary Filtration, Intermittent, Less than 6 Hours Per Day (ICD-10-PCS; principal; 2018-07-14)
DX: E87.5 Hyperkalemia (principal); N18.6 End stage renal disease; I12.0 Hypertensive chronic kidney disease with stage 5 chronic kidney disease or end stage renal disease; N25.81 Secondary hyperparathyroidism of renal origin; E44.0 Moderate protein-calorie malnutrition; E11.319 Type 2 diabetes mellitus with unspecified diabetic retinopathy without macular edema; E03.9 Hypothyroidism, unspecified; H54.61 Unqualified visual loss, right eye, normal vision left eye; E11.22 Type 2 diabetes mellitus with diabetic chronic kidney disease; E78.5 Hyperlipidemia, unspecified; R61 Generalized hyperhidrosis; Z68.22 Body mass index [BMI] 22.0-22.9, adult; Z79.4 Long term (current) use of insulin; Z99.2 Dependence on renal dialysis; Z83.3 Family history of diabetes mellitus; Z82.49 Family history of ischemic heart disease and other diseases of the circulatory system
CPT/HCPCS: 83605; 87040; 87081; 93005; 94640; 96374; 96375; 99291; G0378; J0610; J1270; J1644; J1815; J2405; J3490

== ENCOUNTER 2018-12-01 15:22 | Emergency (ER) | payer MEDICARE, OTHER ==
[~2018-12-01] VITALS: Ht 160 cm; Wt 54.5 kg
[~2018-12-01 15:22] MED LIST changes: +AMLO10TA7 PO; +B CO1CAP6 PO
[2018-12-01 15:38] VITALS: BP 160/75
[2018-12-01 15:50] LABS: GLUCOSE,POINT OF CARE 199 MG/DL (70-110)
== END 2018-12-01 18:22 | disposition home or self-care (01) ==
LOC: EMS 15:24
DX: H93.13 Tinnitus, bilateral (principal); E11.9 Type 2 diabetes mellitus without complications; I10 Essential (primary) hypertension; E03.9 Hypothyroidism, unspecified; Z79.4 Long term (current) use of insulin

== ENCOUNTER 2019-04-04 12:53 | Inpatient (IN) | payer MEDICARE, OTHER ==
[~2019-04-04] VITALS: Ht 162.6 cm; Wt 56.4 kg
[2019-04-04] MEDS ORDERED: CLON-465 PO (13:11)
[2019-04-04 14:26] LABS: BASOPHILS % (AUTO) 0.5 % (0.0-2.0); EOSINOPHILS % (AUTO) 3.3 % (1.0-6.0); HEMATOCRIT 37.7 % (41-53); HEMOGLOBIN 12.6 g/dL (13.5-17.5); LYMPHOCYTES # (AUTO) 1.2 K/uL (1.0-4.8); LYMPHOCYTES % (AUTO) 26.3 % (22.0-44.0); MEAN CORPUSCULAR HEMOGLOBIN 29.5 pg (26.0-34.0); MEAN CORPUSCULAR HGB CONC 33.4 G/dL (31.0-37.0); MEAN CORPUSCULAR VOLUME 88 fL (80-100); MONOCYTES # (AUTO) 0.5 K/uL (0.1-1.0); MONOCYTES % (AUTO) 9.9 % (2.0-9.0); NEUTROPHILS # (AUTO) 2.8 K/uL (1.8-7.7); PLATELET COUNT (AUTO) 211 K/uL (150-450); RED BLOOD CELL COUNT(AUTO) 4.28 MIL/uL (4.50-5.90); RED CELL DISTRIBUTION WIDTH 15.7 % (11.5-14.5)
[2019-04-04 14:37] LABS: CREATININE 6.33 mg/dL (0.60-1.30); POTASSIUM 5.9 mmol/L (3.5-5.1)
[2019-04-04 14:44] LABS: AMMONIA 17 umol/L (11-32)
[2019-04-04 14:45] LABS: TROPONIN I < 0.02 ng/mL (0.00-0.05)
[2019-04-04 14:52] LABS: ALBUMIN 3.8 g/dL (3.4-5.0); BILIRUBIN,TOTAL 0.4 mg/dL (0.1-1.0); THYROID STIMULATING HORMONE 10.17 uIU/mL (0.36-3.74); TOTAL PROTEIN, SERUM 7.7 g/dL (6.4-8.2)
[2019-04-04] MEDS ORDERED: AmLODIPine BESYLATE 5 MG TABLET PO ONE (16:15)
[2019-04-04] MEDS ORDERED: CARV12 PO (16:19)
[2019-04-04] MEDS ORDERED: ISOS5TAB5 PO (16:19)
[2019-04-04] MEDS ORDERED: CHOL100018 PO (16:19)
[2019-04-04] MEDS ORDERED: LEVO75 PO (16:19)
[2019-04-04] MEDS ORDERED: NITROGLYCERIN 2% (1 GM=INCH) PACKET TP ONE (17:30)
[2019-04-04] MEDS ORDERED: CloNIDine HCL 0.1 MG TABLET PO ONE (17:30)
[2019-04-04 18:28] VITALS: BP 179/79
[2019-04-04] MEDS ORDERED: ONDANSETRON HCL 4 MG/2 ML VIAL IVP PRN (19:15)
[2019-04-04] MEDS ORDERED: ZOLPIDEM TARTRATE 5 MG TABLET PO PRN (19:15)
[2019-04-04] MEDS ORDERED: DEXTROSE 50%-WATER 25 GM/50 ML SYRINGE IVP PRN (19:15)
[2019-04-04] MEDS ORDERED: 0.9% SODIUM CHLORIDE 10 ML SYRINGE IVP PRN (19:15)
[2019-04-04] MEDS ORDERED: CLON0.1T83 PO (19:25)
[2019-04-04 20:15] VITALS: BP 135/68
[2019-04-04] MEDS: PANTOPRAZOLE SODIUM 40 MG DR TABLET PO SCH (20:41)
[2019-04-04] MEDS: HydrALAZINE HCL 25 MG TABLET PO SCH (20:41)
[2019-04-04] MEDS: SODIUM POLYSTYRENE SULFONATE 15 GM/60 ML SUSPENSION BOTTLE PO SCH (20:41)
[2019-04-04] MEDS: CloNIDine HCL 0.1 MG TABLET PO SCH (20:42)
[2019-04-04] MEDS: ISOSORBIDE DINITRATE 5 MG TABLET PO SCH (21:00)
[2019-04-04] MEDS: CARVEDILOL 12.5 MG TABLET PO SCH (21:00)
[2019-04-05] VITALS (7 sets, daily range): BP systolic 126–172; BP diastolic 59–77
[2019-04-05] MEDS: SODIUM POLYSTYRENE SULFONATE 15 GM/60 ML SUSPENSION BOTTLE PO SCH (00:21)
[2019-04-05] MEDS: LEVOTHYROXINE SODIUM 75 MCG TABLET PO SCH (06:15)
[2019-04-05] MEDS: INSULIN LISPRO 100 UNITS/ML SQ PRN ×4 (06:19→22:16)
[2019-04-05 06:50] LABS: GLUCOMETER DEV NAME(LOC) 5S.2A; GLUCOSE,POINT OF CARE 178 MG/DL (70-110)
[2019-04-05 06:50] LABS: GLUCOMETER DEV NAME(LOC) 5S.2A; GLUCOSE,POINT OF CARE 114 MG/DL (70-110)
[2019-04-05 07:55] LABS: EOSINOPHILS % (AUTO) 3.9 % (1.0-6.0); HEMOGLOBIN 11.8 g/dL (13.5-17.5); LYMPHOCYTES # (AUTO) 1.3 K/uL (1.0-4.8); LYMPHOCYTES % (AUTO) 32.2 % (22.0-44.0); MEAN CORPUSCULAR HEMOGLOBIN 29.6 pg (26.0-34.0); MEAN CORPUSCULAR HGB CONC 33.6 G/dL (31.0-37.0); MEAN CORPUSCULAR VOLUME 88 fL (80-100); MONOCYTES # (AUTO) 0.4 K/uL (0.1-1.0); MONOCYTES % (AUTO) 10.6 % (2.0-9.0); NEUTROPHILS # (AUTO) 2.1 K/uL (1.8-7.7); NEUTROPHILS % (AUTO) 52.3 % (40.0-70.0); PLATELET COUNT (AUTO) 183 K/uL (150-450); RED BLOOD CELL COUNT(AUTO) 3.98 MIL/uL (4.50-5.90); RED CELL DISTRIBUTION WIDTH 15.6 % (11.5-14.5)
[2019-04-05 08:19] LABS: CALCIUM, TOTAL 8.7 mg/dL (8.8-10.5); CREATININE 7.58 mg/dL (0.60-1.30); MAGNESIUM 2.3 mg/dL (1.80-2.40); POTASSIUM 4.9 mmol/L (3.5-5.1)
[2019-04-05] MEDS: CARVEDILOL 12.5 MG TABLET PO SCH ×2 (08:44→21:00)
[2019-04-05] MEDS: ISOSORBIDE DINITRATE 5 MG TABLET PO SCH ×3 (08:44→20:51)
[2019-04-05] MEDS: VITAMIN B COMP/VIT C/FOLIC ACID CAPSULE PO SCH (08:49)
[2019-04-05] MEDS: CHOLECALCIFEROL (VIT D3) 1,000 UNITS TABLET PO SCH (08:49)
[2019-04-05] MEDS: HydrALAZINE HCL 25 MG TABLET PO SCH ×2 (08:49→21:00)
[2019-04-05] MEDS: PANTOPRAZOLE SODIUM 40 MG DR TABLET PO SCH (08:49)
[2019-04-05] MEDS: AmLODIPine BESYLATE 10 MG TABLET PO SCH (08:49)
[2019-04-05 15:35] LABS: GLUCOMETER DEV NAME(LOC) 5N.2; GLUCOSE,POINT OF CARE 217 MG/DL (70-110)
[2019-04-05] MEDS ORDERED: SODIUM CHLORIDE 0.9% 2,000 ML ONE (16:07)
[2019-04-05] MEDS: CloNIDine HCL 0.1 MG TABLET PO SCH (20:51)
[2019-04-05 22:19] LABS: GLUCOMETER DEV NAME(LOC) 5N.2; GLUCOSE,POINT OF CARE 218 MG/DL (70-110)
[2019-04-05 22:29] LABS: GLUCOMETER DEV NAME(LOC) 5S.2A; GLUCOSE,POINT OF CARE 218 MG/DL (70-110)
[2019-04-06] MEDS: HydrALAZINE HCL 25 MG TABLET PO SCH ×2 (04:54→21:00)
[2019-04-06 05:23] VITALS: BP 174/71
[2019-04-06] MEDS: LEVOTHYROXINE SODIUM 75 MCG TABLET PO SCH (06:04)
[2019-04-06] MEDS: INSULIN LISPRO 100 UNITS/ML SQ PRN ×4 (06:07→21:10)
[2019-04-06 06:43] LABS: GLUCOMETER DEV NAME(LOC) 5N.2; GLUCOSE,POINT OF CARE 286 MG/DL (70-110)
[2019-04-06 06:55] LABS: BASOPHILS % (AUTO) 1.1 % (0.0-2.0); EOSINOPHILS % (AUTO) 3.7 % (1.0-6.0); HEMATOCRIT 36.3 % (41-53); HEMOGLOBIN 11.9 g/dL (13.5-17.5); LYMPHOCYTES # (AUTO) 1.3 K/uL (1.0-4.8); LYMPHOCYTES % (AUTO) 29.4 % (22.0-44.0); MEAN CORPUSCULAR HGB CONC 32.7 G/dL (31.0-37.0); MEAN CORPUSCULAR VOLUME 89 fL (80-100); MONOCYTES # (AUTO) 0.5 K/uL (0.1-1.0); MONOCYTES % (AUTO) 12.6 % (2.0-9.0); NEUTROPHILS # (AUTO) 2.3 K/uL (1.8-7.7); NEUTROPHILS % (AUTO) 53.2 % (40.0-70.0); PLATELET COUNT (AUTO) 202 K/uL (150-450); RED BLOOD CELL COUNT(AUTO) 4.09 MIL/uL (4.50-5.90); RED CELL DISTRIBUTION WIDTH 15.6 % (11.5-14.5)
[2019-04-06 07:24] VITALS: BP 178/70
[2019-04-06 07:44] LABS: CALCIUM, TOTAL 8.9 mg/dL (8.8-10.5); CREATININE 5.58 mg/dL (0.60-1.30); POTASSIUM 4.6 mmol/L (3.5-5.1)
[2019-04-06] MEDS: CARVEDILOL 12.5 MG TABLET PO SCH ×2 (09:00→21:00)
[2019-04-06] MEDS: CHOLECALCIFEROL (VIT D3) 1,000 UNITS TABLET PO SCH (09:05)
[2019-04-06] MEDS: ISOSORBIDE DINITRATE 5 MG TABLET PO SCH ×3 (09:05→21:04)
[2019-04-06] MEDS: PANTOPRAZOLE SODIUM 40 MG DR TABLET PO SCH (09:05)
[2019-04-06] MEDS: VITAMIN B COMP/VIT C/FOLIC ACID CAPSULE PO SCH (09:05)
[2019-04-06] MEDS: AmLODIPine BESYLATE 10 MG TABLET PO SCH (09:05)
[2019-04-06] MEDS: SEVELAMER CARBONATE 800 MG TABLET PO SCH ×2 (11:45→17:10)
[2019-04-06 12:26] VITALS: BP 156/74
[2019-04-06 15:40] VITALS: BP 170/70
[2019-04-06 16:11] LABS: GLUCOMETER DEV NAME(LOC) 5S.1; GLUCOSE,POINT OF CARE 247 MG/DL (70-110)
[2019-04-06 18:58] LABS: GLUCOMETER DEV NAME(LOC) 5S.1; GLUCOSE,POINT OF CARE 246 MG/DL (70-110)
[2019-04-06 19:55] VITALS: BP 148/66
[2019-04-06] MEDS: CloNIDine HCL 0.1 MG TABLET PO SCH (21:04)
[2019-04-07 00:15] VITALS: BP 136/71
[2019-04-07 04:15] VITALS: BP 141/76
[2019-04-07] MEDS: INSULIN LISPRO 100 UNITS/ML SQ PRN ×3 (06:09→16:33)
[2019-04-07] MEDS: LEVOTHYROXINE SODIUM 75 MCG TABLET PO SCH (06:10)
[2019-04-07 06:41] LABS: GLUCOMETER DEV NAME(LOC) 5N.2; GLUCOSE,POINT OF CARE 304 MG/DL (70-110)
[2019-04-07 07:48] VITALS: BP 193/73
[2019-04-07] MEDS: PANTOPRAZOLE SODIUM 40 MG DR TABLET PO SCH (08:17)
[2019-04-07] MEDS: AmLODIPine BESYLATE 10 MG TABLET PO SCH (08:17)
[2019-04-07] MEDS: VITAMIN B COMP/VIT C/FOLIC ACID CAPSULE PO SCH (08:17)
[2019-04-07] MEDS: ISOSORBIDE DINITRATE 5 MG TABLET PO SCH ×2 (08:17→16:33)
[2019-04-07] MEDS: SEVELAMER CARBONATE 800 MG TABLET PO SCH ×3 (08:17→17:13)
[2019-04-07] MEDS: CARVEDILOL 12.5 MG TABLET PO SCH (08:17)
[2019-04-07] MEDS: HydrALAZINE HCL 25 MG TABLET PO SCH (08:17)
[2019-04-07] MEDS: CHOLECALCIFEROL (VIT D3) 1,000 UNITS TABLET PO SCH (08:17)
[2019-04-07] MEDS ORDERED: EPOETIN ALFA 10,000 UNITS/ML 2 ML VIAL SQ SCH (09:00)
[2019-04-07 10:56] VITALS: BP 140/54
[2019-04-07 11:47] LABS: GLUCOMETER DEV NAME(LOC) 5S.2A; GLUCOSE,POINT OF CARE 217 MG/DL (70-110)
[2019-04-07] MEDS ORDERED: SEVE800T17 PO (11:52)
[2019-04-07 12:14] LABS: GLUCOMETER DEV NAME(LOC) 5S.2A; GLUCOSE,POINT OF CARE 300 MG/DL (70-110)
[2019-04-07 16:25] VITALS: BP 165/68
[2019-04-07 16:52] LABS: GLUCOMETER DEV NAME(LOC) 5S.2A; GLUCOSE,POINT OF CARE 252 MG/DL (70-110)
[2019-04-07 18:27] LABS: CALCIUM, TOTAL 8.9 mg/dL (8.8-10.5); CREATININE 8.47 mg/dL (0.60-1.30); POTASSIUM 4.9 mmol/L (3.5-5.1)
== END 2019-04-07 19:25 | disposition home or self-care (01) | DRG 304 ==
LOC: EMS 12:55 → 5N 17:08 → 5S 18:51
PROVIDERS: ADMIT Internal Medicine; ATTEND Internal Medicine
PROC: 5A1D70Z Performance of Urinary Filtration, Intermittent, Less than 6 Hours Per Day (ICD-10-PCS; principal; 2019-04-05)
DX: I16.0 Hypertensive urgency (principal); N18.6 End stage renal disease; I12.0 Hypertensive chronic kidney disease with stage 5 chronic kidney disease or end stage renal disease; E87.5 Hyperkalemia; E03.9 Hypothyroidism, unspecified; D63.1 Anemia in chronic kidney disease; E21.3 Hyperparathyroidism, unspecified; E11.22 Type 2 diabetes mellitus with diabetic chronic kidney disease; Z99.2 Dependence on renal dialysis; Z82.49 Family history of ischemic heart disease and other diseases of the circulatory system; Z83.3 Family history of diabetes mellitus; Z98.41 Cataract extraction status, right eye; Z98.42 Cataract extraction status, left eye; Z79.899 Other long term (current) drug therapy
CPT/HCPCS: 70450; 70551; 83605; 83735; 84439; 84443; 87040; 87081; 87340; 93005; 93306; 93880; J0885; J7030